=== PATIENT | female | born 1995 | race African-American/Black ===

== ENCOUNTER 2023-08-22 06:26 | Inpatient (IN) ==
[~2023-08-22 06:26] MED LIST: D5 1/2 NS 1,000 ML 1,000 ML IV SCH; NUBAIN INJ 20 MG AMP IVP PRN; OXYTOCIN 20 UNIT/1,000 ML-NS 20 UNIT/1,000 ML PLAST..BAG IV PRN; PITOCIN IVP ONE; REGLAN INJ 10 MG VIAL IVP PRN; STADOL INJ IVP PRN; ZOFRAN INJ 4 MG VIAL IVP PRN
[2023-08-22] MEDS ORDERED: D5 1/2 NS 1,000 ML 1,000 ML IV ONE (06:38)
[2023-08-22] MEDS ORDERED: PITOCIN IVP ONE (06:49)
[2023-08-22] MEDS ORDERED: ZOFRAN INJ 4 MG VIAL IVP PRN ×3 (06:49→19:13)
[2023-08-22] MEDS ORDERED: STADOL INJ IVP PRN (06:49)
[2023-08-22] MEDS ORDERED: OXYTOCIN 20 UNIT/1,000 ML-NS 20 UNIT/1,000 ML PLAST..BAG IV PRN (06:49)
[2023-08-22] MEDS ORDERED: NUBAIN INJ 20 MG AMP IVP PRN (06:49)
[2023-08-22] MEDS ORDERED: D5 1/2 NS 1,000 ML 1,000 ML IV SCH (06:49)
[2023-08-22] MEDS ORDERED: REGLAN INJ 10 MG VIAL IVP PRN ×3 (06:49→19:13)
--- NOTE | 2023-08-22 07:14 | DR.OB ---
OB QUICK NOTE Assessment/Plan (1) Active labor at term: Assessment/Plan: L&D 08/22/23 at 6:45am S-No complaint except CTX. O-Afebrile,VSS SER=723 with good LTV, +accel, no decel. CTX=q 2-3 min., strong by palpation CVX=3cm/50%/-1/VTX AROM with clear fluid. IUPC and FSE placed. A-IUP at 40 0/7 weeks in labor P-Pitocin augmentation as needed. F/U labs Anticipate
[2023-08-22] MEDS ORDERED: LR 1,000 ML IV 1,000 ML IV ONE ×4 (08:44→17:10)
[2023-08-22] MEDS ORDERED: NAROPIN EPIDURAL 0.2% 100 ML ONE (09:33)
[2023-08-22] MEDS ORDERED: FENTANYL VIAL INJ 100 mcg ONE (09:33)
[2023-08-22] MEDS ORDERED: BETADINE SOLN ONE (09:47)
--- NOTE | 2023-08-22 11:50 | DR.OB ---
OB QUICK NOTE Assessment/Plan (1) Active labor at term: Assessment/Plan: L&D 08/22/23 at 11:45pm Pitocin=6mu/min. S-No complaint. s/p epidural. O-Afebrile,VSS NOZ=675 with good LTV, +accel, no decel. CTX=q 1 1/2 to 2 min., about 45-55mmHg CVX=5cm/75%/0 A-IUP at 40 0/7 weeks in active labor P-Continue pitocin augmentation Anticipate
[2023-08-22] MEDS ORDERED: ANCEF VIAL 1 GRAM ONE (16:54)
[2023-08-22] MEDS ORDERED: NS 100 ML IV 100 ML ONE (16:54)
[2023-08-22] MEDS ORDERED: NOZIN NASAL SANITIZER TP ONE ×2 (16:59→17:06)
--- NOTE | 2023-08-22 17:04 | DR.OB ---
OB QUICK NOTE Assessment/Plan (1) Active labor at term: Assessment/Plan: L&D 08/22/23 at 5:00pm S-No complaint. O-Afebrile,VSS QON=[id number] with poor LTV, +accel, repetitive late decel. CTX=q 1 1/2 to 2 min., 55-65mmHg CVX=complete/0 No significant descent with pushing effort for 30 min. A-IUP at 40 0/7 weeks with non-reassuring FHT P-As pt. distant from delivery, will go to C/S
[2023-08-22] MEDS ORDERED: LIDOCAINE 2%-EPI 1:200,000 ONE (17:05)
[2023-08-22] MEDS ORDERED: PEPCID 20 MG VIAL ONE (17:08)
[2023-08-22] MEDS ORDERED: ZOFRAN INJ 4 MG VIAL ONE (17:08)
[2023-08-22] MEDS ORDERED: REGLAN INJ 10 MG VIAL ONE (17:08)
[2023-08-22] MEDS ORDERED: DIPRIVAN VIAL 20 ML ONE (17:12)
[2023-08-22] MEDS ORDERED: PITOCIN ONE (17:14)
[2023-08-22] MEDS ORDERED: DILAUDID INJ ONE (17:43)
[2023-08-22] MEDS ORDERED: BARHEMSYS INJ IVP PRN (18:31)
[2023-08-22] MEDS ORDERED: BENADRYL INJ 50 MG VIAL IVP PRN ×2 (18:31→19:13)
[2023-08-22] MEDS ORDERED: ADACEL or BOOSTRIX TDaP VACCINE IM ONE ×2 (19:13→23:07)
[2023-08-22] MEDS ORDERED: MYLICON TAB 80 MG CHEW PO PRN (19:13)
[2023-08-22] MEDS ORDERED: D5 1/2 NS 1,000 ML 1,000 ML with PITOCIN 20 UNITS IV SCH ×2 (19:13)
[2023-08-22] MEDS ORDERED: PERCOCET TAB 5/325 MG PO PRN (19:13)
[2023-08-22] MEDS ORDERED: NARCAN INJ IVP PRN (19:13)
[2023-08-22] MEDS: TORADOL 30 MG VIAL IVP PRN (19:40)
[2023-08-23] MEDS: TORADOL 30 MG VIAL IVP PRN (03:04)
[2023-08-23 05:40] LABS: HEMATOCRIT 28.5 % (36.0-47.0); HEMOGLOBIN 9.2 g/dL (12.0-16.0)
[2023-08-23] MEDS: COLACE CAP 100 MG PO SCH ×2 (09:38→20:14)
[2023-08-23] MEDS: PRENATAL PLUS PO SCH (09:38)
[2023-08-23] MEDS: PERCOCET TAB 5/325 MG PO PRN ×2 (09:39→21:33)
[2023-08-23] MEDS: DERMOPLAST PAIN RELIEF SPRAY TOP PRN ×2 (11:58→20:14)
[2023-08-23] MEDS: BACTROBAN TOPICAL OINT TOP SCH ×2 (13:21→21:16)
[2023-08-23] MEDS: MOTRIN TAB 800 MG PO PRN (14:37)
[2023-08-24] MEDS: MOTRIN TAB 800 MG PO PRN (07:50)
[2023-08-24] MEDS: COLACE CAP 100 MG PO SCH (08:49)
[2023-08-24] MEDS: PRENATAL PLUS PO SCH (08:49)
[2023-08-24 08:51] VITALS: RESP 18
[2023-08-24 09:33] VITALS: BP 119/67; PULSE 76; TEMP 97.8; O2SAT 97
== END 2023-08-24 10:45 | disposition home or self-care (01) | DRG 788 ==
LOC: LD 06:26 → MED/SURG 18:41
PROVIDERS: ADMIT Specialist; ATTEND Specialist
DX: Z3A.40 40 weeks gestation of pregnancy; O98.313 Other infections with a predominantly sexual mode of transmission complicating pregnancy, third trimester; Z37.0 Single live birth; O26.893 Other specified pregnancy related conditions, third trimester; O76 Abnormality in fetal heart rate and rhythm complicating labor and delivery